=== PATIENT | female | born 1940 | race Two or more races ===

== ENCOUNTER 2018-03-11 10:31 | Outpatient (CLI) | payer OTHER ==
[~2018-03-11] VITALS: Ht 152.4 cm; Wt 51.3 kg
== END 2018-03-11 10:40 | disposition home or self-care (01) ==
LOC: OFIC 805 10:31
DX: H81.11 Benign paroxysmal vertigo, right ear (principal); R11.0 Nausea

== ENCOUNTER 2018-03-28 08:45 | Outpatient (CLI) | payer OTHER ==
[~2018-03-28] VITALS: Ht 152.4 cm; Wt 51.3 kg
== END 2018-03-28 09:00 | disposition home or self-care (01) ==
LOC: OFIC 805 08:45
DX: R42 Dizziness and giddiness (principal); R11.0 Nausea

== ENCOUNTER → 2018-09-22 | Outpatient (CLI) | payer OTHER | END | disposition home or self-care (01) | LOC: RAD 501 14:43 | DX: M54.5 Low back pain (principal) ==

== ENCOUNTER → 2018-11-14 | Outpatient (CLI) | payer OTHER | END | disposition home or self-care (01) | LOC: RAD 501 09:43 | DX: M54.2 Cervicalgia (principal); M17.12 Unilateral primary osteoarthritis, left knee ==

== ENCOUNTER 2018-12-12 07:31 | Outpatient (CLI) | payer OTHER | END 2018-12-12 07:36 | disposition home or self-care (01) | LOC: MAMO-SONO 07:31 | DX: Z12.31 Encounter for screening mammogram for malignant neoplasm of breast (principal); Z87.898 Personal history of other specified conditions; N60.11 Diffuse cystic mastopathy of right breast; N60.12 Diffuse cystic mastopathy of left breast ==

== ENCOUNTER 2019-04-06 09:25 | Outpatient (CLI) | payer OTHER | END 2019-04-06 09:30 | disposition home or self-care (01) | LOC: RAD 09:25 | DX: H25.011 Cortical age-related cataract, right eye (principal); Z98.41 Cataract extraction status, right eye ==

== ENCOUNTER 2019-09-02 14:27 | Emergency (ER) | payer OTHER ==
[~2019-09-02] VITALS: Ht 152.4 cm; Wt 52.2 kg
== END 2019-09-03 03:23 | disposition home or self-care (01) ==
LOC: ER 14:27
DX: E86.0 Dehydration (principal); R11.2 Nausea with vomiting, unspecified; R51 Headache

== ENCOUNTER 2020-01-15 07:50 | Outpatient (CLI) | payer OTHER | END 2020-01-15 08:33 | disposition home or self-care (01) | LOC: MAMO-SONO 07:50 | DX: Z12.31 Encounter for screening mammogram for malignant neoplasm of breast (principal); Z87.898 Personal history of other specified conditions; N60.11 Diffuse cystic mastopathy of right breast; N60.12 Diffuse cystic mastopathy of left breast ==

== ENCOUNTER 2020-01-30 10:12 | Outpatient (CLI) | payer OTHER ==
[2020-01-30] MEDS ORDERED: FLONASE16 GM NASAL (12:33)
[2020-01-30] MEDS ORDERED: PEPCID AC20 MG PO (12:34)
[2020-01-30] MEDS ORDERED: PRILOSEC OTC20 MG PO (12:34)
== END 2020-01-30 13:53 | disposition home or self-care (01) ==
LOC: OFIC 805 10:12
DX: H93.13 Tinnitus, bilateral (principal); J39.2 Other diseases of pharynx; K21.9 Gastro-esophageal reflux disease without esophagitis; R07.0 Pain in throat

== ENCOUNTER 2020-05-10 10:58 | Outpatient (CLI) | payer OTHER ==
[~2020-05-10 10:58] MED LIST: FLONASE16 GM NASAL; PEPCID AC20 MG PO; PRILOSEC OTC20 MG PO
== END 2020-05-10 11:04 | disposition home or self-care (01) ==
LOC: NUCLEAR 10:58
PROVIDERS: ATTEND Internal Medicine Sports Medicine
DX: M81.0 Age-related osteoporosis without current pathological fracture (principal)

== ENCOUNTER 2020-06-18 09:46 | Outpatient (CLI) | payer OTHER | END 2020-06-18 10:09 | disposition home or self-care (01) | LOC: MRI 09:46 | DX: H90.3 Sensorineural hearing loss, bilateral (principal) | CPT/HCPCS: 70553; A9575; 70551 ==

== ENCOUNTER 2020-07-19 07:12 | Outpatient (CLI) | payer OTHER | END 2020-07-19 07:29 | disposition home or self-care (01) | LOC: TOM 07:12 | PROVIDERS: ATTEND Internal Medicine Gastroenterology | DX: M41.86 Other forms of scoliosis, lumbar region (principal); R10.84 Generalized abdominal pain | CPT/HCPCS: 74160; Q9965 ==

== ENCOUNTER → 2020-08-16 | Outpatient (CLI) | payer OTHER | END | disposition home or self-care (01) | LOC: NUCLEAR 07:00 | PROVIDERS: ATTEND Internal Medicine Sports Medicine | DX: I11.9 Hypertensive heart disease without heart failure (principal); I25.10 Atherosclerotic heart disease of native coronary artery without angina pectoris | CPT/HCPCS: 78452; 93017; A9500 ==

== ENCOUNTER 2020-10-24 11:13 | Emergency (ER) | payer OTHER ==
[~2020-10-24] VITALS: Ht 152.4 cm; Wt 49.9 kg
[2020-10-24] MEDS ORDERED: LEVOTHYROXINE25 MCG (11:31)
[2020-10-24] MEDS ORDERED: SIMVASTATIN80 MG (11:31)
== END 2020-10-24 20:08 | disposition home or self-care (01) ==
LOC: ER 11:13
DX: R42 Dizziness and giddiness (principal)

== ENCOUNTER 2021-01-07 08:45 | Outpatient (CLI) | payer OTHER ==
[~2021-01-07 08:45] MED LIST changes: +LEVOTHYROXINE25 MCG; +SIMVASTATIN80 MG
== END 2021-01-07 08:50 | disposition home or self-care (01) ==
LOC: MAMO-SONO 08:45
PROVIDERS: ATTEND Surgery
DX: Z12.31 Encounter for screening mammogram for malignant neoplasm of breast (principal); Z87.898 Personal history of other specified conditions; N60.11 Diffuse cystic mastopathy of right breast; N60.12 Diffuse cystic mastopathy of left breast

== ENCOUNTER 2021-06-26 07:17 | Outpatient (CLI) | payer OTHER | END 2021-06-26 07:22 | disposition home or self-care (01) | LOC: MRI 07:17 | PROVIDERS: ATTEND Neuromusculoskeletal Medicine & OMM | DX: R41.3 Other amnesia (principal); I72.8 Aneurysm of other specified arteries; I65.1 Occlusion and stenosis of basilar artery; I65.09 Occlusion and stenosis of unspecified vertebral artery; I65.29 Occlusion and stenosis of unspecified carotid artery; Q28.2 Arteriovenous malformation of cerebral vessels | CPT/HCPCS: 70544; 70553; A9575; 70546 ==

== ENCOUNTER 2021-06-26 09:12 | Outpatient (CLI) | payer OTHER | END 2021-06-26 15:00 | disposition home or self-care (01) | LOC: LAB 09:12 | PROVIDERS: ATTEND Radiology Diagnostic Radiology | DX: N25.81 Secondary hyperparathyroidism of renal origin (principal) ==

== ENCOUNTER → 2021-07-11 | Outpatient (CLI) | payer OTHER | END | disposition home or self-care (01) | LOC: RAD 10:53 | PROVIDERS: ATTEND Physical Medicine & Rehabilitation | DX: M51.37 Other intervertebral disc degeneration, lumbosacral region (principal); M54.59 Other low back pain; M70.62 Trochanteric bursitis, left hip; M16.12 Unilateral primary osteoarthritis, left hip ==

== ENCOUNTER 2021-11-05 12:24 | Outpatient (CLI) | payer OTHER | END 2021-11-05 12:29 | disposition home or self-care (01) | LOC: MRI 12:24 | PROVIDERS: ATTEND Physical Medicine & Rehabilitation | DX: M54.50 Low back pain, unspecified (principal); M54.16 Radiculopathy, lumbar region | CPT/HCPCS: 72148 ==

== ENCOUNTER 2021-12-03 08:01 | Outpatient (CLI) | payer OTHER | END 2021-12-03 08:11 | disposition home or self-care (01) | LOC: SONOGRAMA 08:01 | PROVIDERS: ATTEND Internal Medicine Sports Medicine | DX: R74.01 Elevation of levels of liver transaminase levels (principal) ==

== ENCOUNTER 2021-12-23 07:49 | Outpatient (CLI) | payer OTHER | END 2021-12-23 08:02 | disposition home or self-care (01) | LOC: MRI 07:49 | PROVIDERS: ATTEND Physical Medicine & Rehabilitation | DX: M75.101 Unspecified rotator cuff tear or rupture of right shoulder, not specified as traumatic (principal) | CPT/HCPCS: 73218 ==

== ENCOUNTER 2021-12-23 08:00 | Outpatient (CLI) | payer OTHER | END 2021-12-23 08:30 | disposition home or self-care (01) | LOC: PPH VACUNA 08:00 | PROVIDERS: ATTEND Emergency Medicine Pediatric Emergency Medicine | DX: Z23 Encounter for immunization (principal) ==

== ENCOUNTER 2022-01-13 08:08 | Outpatient (CLI) | payer OTHER | END 2022-01-13 08:18 | disposition home or self-care (01) | LOC: MAMO-SONO 08:08 | PROVIDERS: ATTEND Surgery | DX: N60.11 Diffuse cystic mastopathy of right breast (principal); N60.12 Diffuse cystic mastopathy of left breast ==

== ENCOUNTER 2022-02-12 14:20 | Outpatient (CLI) | payer OTHER | END 2022-02-12 14:24 | disposition home or self-care (01) | LOC: RAD 14:20 | PROVIDERS: ATTEND Orthopaedic Surgery | DX: M75.121 Complete rotator cuff tear or rupture of right shoulder, not specified as traumatic (principal) ==

== ENCOUNTER 2022-05-21 08:34 | Outpatient (CLI) | payer OTHER | END 2022-05-21 08:39 | disposition home or self-care (01) | LOC: PPH VACUNA 08:34 | PROVIDERS: ATTEND Emergency Medicine Pediatric Emergency Medicine | DX: Z23 Encounter for immunization (principal) ==

== ENCOUNTER → 2022-06-19 | Outpatient (CLI) | payer OTHER | END | disposition home or self-care (01) | LOC: NUCLEAR 06-08 09:00 | PROVIDERS: ATTEND Internal Medicine Sports Medicine | DX: M81.0 Age-related osteoporosis without current pathological fracture (principal) ==

== ENCOUNTER 2022-08-07 13:59 | Emergency (ER) | payer OTHER ==
[~2022-08-07] VITALS: Ht 152.4 cm; Wt 51.3 kg
[2022-08-07] MEDS ORDERED: CIPRO500 MG PO (18:50)
== END 2022-08-07 19:40 | disposition home or self-care (01) ==
LOC: ER 13:59
DX: S51.002A Unspecified open wound of left elbow, initial encounter (principal); V49.9XXA Car occupant (driver) (passenger) injured in unspecified traffic accident, initial encounter; Y93.9 Activity, unspecified; Y92.9 Unspecified place or not applicable

== ENCOUNTER 2022-12-21 08:08 | Emergency (ER) | payer OTHER ==
[~2022-12-21] VITALS: Ht 152.4 cm; Wt 52.2 kg
[~2022-12-21 08:08] MED LIST changes: +CIPRO500 MG PO
== END 2022-12-21 09:16 | disposition home or self-care (01) ==
LOC: ER 08:08
DX: M43.6 Torticollis (principal); M54.2 Cervicalgia

== ENCOUNTER 2023-01-14 07:21 | Outpatient (CLI) | payer OTHER | END 2023-01-14 07:27 | disposition home or self-care (01) | LOC: MAMO-SONO 07:21 | PROVIDERS: ATTEND Specialist | DX: N60.11 Diffuse cystic mastopathy of right breast (principal); N60.12 Diffuse cystic mastopathy of left breast ==

== ENCOUNTER 2023-01-20 08:03 | Emergency (ER) | payer OTHER ==
[~2023-01-20] VITALS: Ht 152.4 cm; Wt 52.2 kg
[2023-01-20] MEDS ORDERED: NORFLEX100MG PO (10:41)
== END 2023-01-20 10:47 | disposition home or self-care (01) ==
LOC: ER 08:03
DX: M54.2 Cervicalgia (principal); R17 Unspecified jaundice; E03.9 Hypothyroidism, unspecified

== ENCOUNTER 2023-01-26 10:24 | Outpatient (CLI) | payer OTHER ==
[~2023-01-26 10:24] MED LIST changes: +NORFLEX100MG PO
== END 2023-01-26 10:32 | disposition home or self-care (01) ==
LOC: RAD 10:24
PROVIDERS: ATTEND Podiatrist Foot Surgery
DX: M77.41 Metatarsalgia, right foot (principal); M77.42 Metatarsalgia, left foot

== ENCOUNTER 2023-02-23 07:09 | Outpatient (CLI) | payer OTHER | END 2023-02-23 07:12 | disposition home or self-care (01) | LOC: TOM 07:09 | PROVIDERS: ATTEND Internal Medicine | DX: R10.9 Unspecified abdominal pain (principal); R11.0 Nausea ==

== ENCOUNTER 2023-08-25 08:41 | Outpatient (CLI) | payer OTHER | END 2023-08-25 08:49 | disposition home or self-care (01) | LOC: RAD 08:41 | PROVIDERS: ATTEND Orthopaedic Surgery | DX: M25.552 Pain in left hip (principal); M25.551 Pain in right hip ==

== ENCOUNTER 2024-05-15 11:34 | Outpatient (CLI) | payer OTHER | END 2024-05-15 11:41 | disposition home or self-care (01) | LOC: RAD 11:34 | PROVIDERS: ATTEND Obstetrics & Gynecology Obstetrics | DX: M99.03 Segmental and somatic dysfunction of lumbar region (principal); M99.04 Segmental and somatic dysfunction of sacral region; M99.05 Segmental and somatic dysfunction of pelvic region ==

== ENCOUNTER 2024-07-17 12:46 | Outpatient (CLI) | payer OTHER | END 2024-07-17 12:54 | disposition home or self-care (01) | LOC: NUCLEAR 12:46 | PROVIDERS: ATTEND Orthopaedic Surgery | DX: M81.0 Age-related osteoporosis without current pathological fracture (principal) ==

== ENCOUNTER 2024-07-18 07:37 | Outpatient (CLI) | payer OTHER | END 2024-07-18 07:48 | disposition home or self-care (01) | LOC: MRI 07:37 | PROVIDERS: ATTEND Neuromusculoskeletal Medicine & OMM | DX: I72.9 Aneurysm of unspecified site (principal); Q28.2 Arteriovenous malformation of cerebral vessels; F09 Unspecified mental disorder due to known physiological condition; F03.90 Unspecified dementia, unspecified severity, without behavioral disturbance, psychotic disturbance, mood disturbance, and anxiety | CPT/HCPCS: 70544; 70551 ==

== ENCOUNTER 2024-10-18 16:37 | Emergency (ER) | payer OTHER ==
[~2024-10-18] VITALS: Ht 157.5 cm; Wt 52.6 kg
[2024-10-18] MEDS ORDERED: SIMVASTATIN5 MG (17:15)
[2024-10-18] MEDS ORDERED: KETOROLAC TROMETHAMINE 15 MG VIAL IM ONE (17:45)
[2024-10-18] MEDS ORDERED: ORPHENADRINE CITRATE 30 MG/ML AMPUL IM ONE (17:45)
[2024-10-18] MEDS ORDERED: KETOROLAC TROMETHAMINE 30 MG VIAL ONE (17:53)
[2024-10-18] MEDS ORDERED: ORPHENADRINE CITRATE 30 MG/ML AMPUL ONE (17:54)
== END 2024-10-18 18:59 ==
LOC: ER 16:40
DX: M54.50 Low back pain, unspecified (principal); M79.605 Pain in left leg; M54.16 Radiculopathy, lumbar region; E03.8 Other specified hypothyroidism
CPT/HCPCS: 96372; 99282; J1885; J2360

== ENCOUNTER 2024-10-27 07:52 | Outpatient (CLI) | payer OTHER ==
[~2024-10-27 07:52] MED LIST changes: +SIMVASTATIN5 MG
== END 2024-10-27 07:55 | disposition home or self-care (01) ==
LOC: RAD 07:52
PROVIDERS: ATTEND Physical Medicine & Rehabilitation
DX: M54.6 Pain in thoracic spine (principal); M54.50 Low back pain, unspecified; M41.9 Scoliosis, unspecified

== ENCOUNTER 2025-01-08 11:52 | Outpatient (CLI) | payer OTHER | END 2025-01-08 12:59 | disposition home or self-care (01) | LOC: EKG 11:52 | PROVIDERS: ATTEND Internal Medicine | DX: Z01.818 Encounter for other preprocedural examination (principal) ==

== ENCOUNTER → 2025-01-08 | Emergency (ER) | payer OTHER ==
[~2025-01-08] VITALS: Ht 152.4 cm; Wt 51.7 kg
== END | disposition left against medical advice (07) ==
LOC: ER 06:37
DX: Z53.21 Procedure and treatment not carried out due to patient leaving prior to being seen by health care provider (principal)

== ENCOUNTER 2025-02-27 07:08 | Outpatient (CLI) | payer OTHER | END 2025-02-27 07:11 | disposition home or self-care (01) | LOC: MAMO-SONO 07:08 | PROVIDERS: ATTEND Surgery | DX: N60.11 Diffuse cystic mastopathy of right breast (principal); Z12.31 Encounter for screening mammogram for malignant neoplasm of breast ==

== ENCOUNTER 2025-05-30 12:15 | Outpatient (CLI) | payer OTHER | END 2025-05-30 12:17 | disposition home or self-care (01) | LOC: RAD 12:15 | PROVIDERS: ATTEND Internal Medicine | DX: R05.9 Cough, unspecified (principal) ==

== ENCOUNTER 2025-08-13 08:29 | Outpatient (CLI) | payer OTHER | END 2025-08-13 08:34 | disposition home or self-care (01) | LOC: MRI 08:29 | PROVIDERS: ATTEND Neuromusculoskeletal Medicine & OMM | DX: D49.6 Neoplasm of unspecified behavior of brain (principal); R51.9 Headache, unspecified | CPT/HCPCS: 70553; Q9965 ==